=== PATIENT | female | born 1935 ===

== ENCOUNTER 2016-10-21 11:45 | Day surgery (SDC) | payer MEDICARE, MEDICAID ==
[2016-10-21 12:05] VITALS: BMI 27.4
[2016-10-21] MEDS ORDERED: Lidocaine 1% Inj (20ml) ONE (12:57)
[2016-10-21 13:04] LABS: PARTIAL THROMBOPLASTIN TIME 30.6 SECONDS (23.3-32.5)
[2016-10-21 13:06] VITALS: RESP 18
--- NOTE | 2016-10-21 13:44 | CP.SDSHP ---
Same Day Surgery H & P - History Proposed Procedure: US guided FNA of left thyroid nodule. Pre-Op Diagnosis: Left thyroid nodule - Allergies Allergies: Allergies Penicillins Allergy (Verified 10/28/15 01:39) RASH - Physical Exam Vital Signs: Vital Signs 10/21/16 10/21/16 10/21/16 12:39 12:41 13:10 Temperature 98.1 F 96.3 F L Pulse Rate 72 71 Pulse Rate [ 72 Radial] Respiratory 18 18 18 Rate Blood Pressure 138/67 141/75 O2 Sat by Pulse 96 99 Oximetry 10/21/16 13:41 Temperature Pulse Rate 76 Pulse Rate [ Radial] Respiratory 18 Rate Blood Pressure 142/74 O2 Sat by Pulse Oximetry Mental Status: Alert & Oriented x3 Neuro: WNL Heart: WNL Lungs: WNL - Impression Impression: Plan US guided FNA of left thyroid nodule. Pt. Evaluated Today:Candidate for Anesthesia & Procedure: No Short Stay Discharge - Short Stay Discharge Admitting Diagnosis/Reason for Visit: LT THYROID NODULE Referrals: Shantel Rehman MD [Primary Care Provider] - Progress Note/Discharge Note with Instructions: s/p left thyroid FNA.
--- NOTE | 2016-10-21 13:46 | PCM.SURG1 ---
Surgeon's Initial Post Op Note - Surgeon's Notes Surgeon: Aly Castro MD Bench Jeweler: NONE Type of Anesthesia: Local Pre-Operative Diagnosis: left thyroid nodule. Operative Findings: 3 cm complex calcified left thyroid nodule Post-Operative Diagnosis: left thyroid nodule. Operation Performed: US guided FNA of left thyroid nodule. Specimen/Specimens Removed: 25 g FNA x 4 Estimated Blood Loss: EBL {In ML}: 0 Post-Op Condition: Good Date of Surgery/Procedure: 10/21/16 Time of Surgery/Procedure: 13:45
[2016-10-21 13:57] VITALS: PULSE 74
[2016-10-21 14:29] VITALS: BP 147/74; TEMP 98; O2SAT 95
--- NOTE | 2016-10-21 14:58 | US ---
PROCEDURE: Date of Procedure: 10/21/2016 PROCEDURE: 1. Ultrasound guided FNA of left thyroid nodule, CPT 68799 2. Ultrasound guidance for FNA, 45222 Medications: 4 cc 1% Lidocaine HISTORY: Enlarged left thyroid nodule. TECHNIQUE: Following informed consent and procedure time-out, a limited ultrasound patient's neck confirmed the presence of a 3 cm complex left thyroid nodule which is predominantly solid and has calcifications. After the patient's neck was prepped and draped in the usual sterile fashion, the skin was anesthetized with 1% lidocaine. Ultrasound-guided fine needle aspiration was then performed of the dominant left thyroid nodule. A total of 4 passes were made into the nodule with 25 gauge needle under ultrasound guidance. The FNA specimen was sent for routine pathology. Post biopsy ultrasound showed no hematoma. IMPRESSION: Ultrasound-guided FNA of the dominant left thyroid nodule.
== END 2016-10-21 14:39 | disposition home or self-care (01) ==
LOC: H.OPSURG 11:45
PROVIDERS: ATTEND Surgery
DX: E04.1 Nontoxic single thyroid nodule (principal)

== ENCOUNTER 2016-12-18 10:18 | Inpatient (IN) | payer MEDICARE, MEDICAID ==
[2016-12-18 10:18] VITALS: BMI 27.4
--- NOTE | 2016-12-18 11:10 | ED PDOC ---
HPI: CCC, URI, Sore Throat Time Seen by Provider: 12/18/16 10:37 Chief Complaint (Nursing): Dizziness/Lightheaded Chief Complaint (Provider): Cough History Per: Patient History/Exam Limitations: no limitations Onset/Duration Of Symptoms: Days (x2 weeks) Current Symptoms Are (Timing): Still Present Associated Symptoms: Cough. denies: Fever, Sputum Severity: Mild Additional Complaint(s): Patient is an 81 year old female, who has a history of asthma, presents to the ED complaining of dry cough x2 weeks. Patient reports worsening asthma and that she is coughing all day and night. Cough is associated with wheezing and intermittent shortness of breath. Patient has been taking her prescribed medication by her PMD including steroids, inhalers, and antibiotics with no relief. Patient also complains of dizziness x4 days., particularly when walking. Denies chest pain, fever, or leg swelling. PMD: Shantel Rehman Past Medical History Reviewed: Historical Data, Nursing Documentation, Vital Signs Vital Signs: Last Vital Signs Temp 98 F 12/18/16 11:12 Pulse 71 12/18/16 13:06 Resp 19 12/18/16 13:06 BP 150/80 12/18/16 13:06 Pulse Ox 97 12/18/16 13:06 - Medical History PMH: Asthma, Diabetes, HTN, Hypercholesterolemia Denies: Chronic Kidney Disease - Surgical History Surgical History: Back Surgery - Family History Family History: States: No Known Family Hx - Home Medications Home Medications: Ambulatory Orders Medication Instructions Recorded Albuterol HFA [Ventolin HFA 90 90 mcg INH PRN PRN 08/07/16 mcg/actuation (8 g)] Budesonide/Formoterol Fumarate 10.2 gm PRN PRN 08/07/16 [Symbicort 160-4.5 Mcg Inhaler] MetFORMIN [glucoPHAGE] 1,000 mg PO BID 08/07/16 Montelukast [Singulair] 10 mg DAILY 08/07/16 Omeprazole Magnesium [Prilosec Otc] 40 mg PO DAILY 08/07/16 Trebenzor 25 - 40 mg PO BID 08/07/16 Aspirin [[place] Aspirin] 81 mg PO DAILY 10/21/16 Gabapentin [Neurontin] 300 mg PO DAILY 10/21/16 Insulin Degludec [Tresiba 25 unit SQ DAILY 10/21/16 Flextouch U-100] SITagliptin [Januvia] 50 mg PO DAILY 10/21/16 Fexofenadine HCl [Fexofenadine HCl] 180 mg PO DAILY 12/18/16 Fluticasone Propionate [Clarispray] 9.9 ml NS DAILY PRN 12/18/16 Fluticasone/Vilanterol [Breo 1 puff IN BID 12/18/16 Ellipta 200-25 Mcg INH] Promethazine [Phenergan Oral Syrup] 5 ml PO Q8 PRN 12/18/16 - Allergies Allergies/Adverse Reactions: Allergies Allergy/AdvReac Type Severity Reaction Status Date / Time Penicillins Allergy RASH Verified 10/28/15 01:39 Review of Systems ROS Statement: Except As Marked, All Systems Reviewed And Found Negative Constitutional: Negative for: Fever Cardiovascular: Negative for: Chest Pain, Edema Respiratory: Positive for: Cough, Shortness of Breath, Wheezing. Negative for: Sputum Neurological: Positive for: Dizziness Physical Exam - Reviewed Nursing Documentation Reviewed: Yes Vital Signs Reviewed: Yes - Physical Exam Appears: Positive for: Well, Non-toxic, No Acute Distress Head Exam: Positive for: ATRAUMATIC, NORMAL INSPECTION, NORMOCEPHALIC Skin: Positive for: Normal Color, Warm, DRY Eye Exam: Positive for: EOMI, Normal appearance, PERRL Neck: Positive for: Normal, Painless ROM Cardiovascular/Chest: Positive for: Regular Rate, Rhythm. Negative for: Gallop , Murmur Respiratory: Positive for: Wheezing (bilateral). Negative for: Accessory Muscle Use, Rhonchi, Respiratory Distress Gastrointestinal/Abdominal: Positive for: Normal Exam, Soft. Negative for: Tenderness Extremity: Positive for: Normal ROM. Negative for: Calf Tenderness, Swelling Neurologic/Psych: Positive for: Alert, Oriented - Laboratory Results Result Diagrams: 12/18/16 11:10 12/18/16 11:10 - ECG ECG: Positive for: Interpreted By Me, Viewed By Me ECG Rhythm: Positive for: Normal QRS, Normal ST Segment, Sinus Rhythm. Negative for: ST/T Changes Rate: 72 - Radiology X-Ray: Viewed By Me, Read By Radiologist X-Ray Interpretation: No Acute Disease - Progress Re-evaluation Time: 01:40 Condition: Re-examined, Improving,but remains with symptoms Nebulizer Treatments/Peak Flow - Duonebs Number of Bronchodilator Doses given?: 2 - Pre/Post Peak Flow Pre Treatment Peak Flow: 150 Post treatment Peak Flow: 200 - Steroid Treatment Steroid: IV - Clinical Response Clinical Response: Unchanged Medical Decision Making Medical Decision Making: Time: 10:40 Impression: asthma exacerbation v PNA v CHF Plan: EKG B Type Natriuretic Peptide BMP Magnesium Stat Troponin UDip CBC CXR Scribe Attestation Documented by Geovanna Thomason acting as a scribe for Kenny Gutierrez MD. Provider Attestation: All medical record entries made by the Scribe were at my direction and personally dictated by me. I have reviewed the chart and agree that the record accurately reflects my personal performance of the history, physical exam, medical decision making, and the department course for this patient. I have also personally directed, reviewed, and agree with the discharge instructions and disposition. Disposition - Clinical Impression Clinical Impression: Asthma exacerbation - Patient ED Disposition Is Patient to be Admitted: Yes Discussed With : Kelvin Min Doctor Will See Patient In The: Hospital Counseled Patient/Family Regarding: Studies Performed, Diagnosis - Disposition Disposition Time: 13:53 Condition: FAIR - Pt Status Changed To: Hospital Disposition Of: Inpatient - Admit Certification Admit to Inpatient:: After my assessment, the patient will require hospitalization for at least two midnights. This is because of the severity of symptoms shown, intensity of services needed, and/or the medical risk in this patient being treated as an outpatient. - POA Present On Arrival: Poor Glycemic Control
[2016-12-18] MEDS ORDERED: Albuterol-Ipratrop 3 mg / 0.5 (3 ml) UD INH STA ×2 (11:15→12:41)
[2016-12-18 11:20] LABS: BASO # 0.1 K/uL (0.0-0.2); BASO % 0.8 % (0.0-2.0); EOS # 0.2 K/uL (0.0-0.7); EOS % 1.4 % (0.0-4.0); HEMOGLOBIN 12.7 g/dL (12.0-16.0); LYMPH # 0.9 K/uL (1.0-4.3); LYMPH % 8.8 % (20.0-40.0); MEAN CELL VOLUME 87.4 fl (81.0-99.0); MEAN CORPUSCULAR HEMOGLOBIN 29.7 pg (27.0-31.0); MEAN PLATELET VOLUME 8.3 fl (7.2-11.7); MONO # 0.7 K/uL (0.0-0.8); MONO % 6.2 % (0.0-10.0); NEUT # 8.7 K/uL (1.8-7.0); NEUT % 82.8 % (50.0-75.0); PLATELET COUNT 195 K/uL (130-400); RBC 4.29 Mil/uL (3.80-5.20); RED CELL DISTRIBUTION WIDTH 12.9 % (11.5-14.5); WHITE BLOOD COUNT 10.6 K/uL (4.8-10.8)
--- NOTE | 2016-12-18 11:21 | RAD ---
HISTORY: dyspnea COMPARISON: Comparison chest dated 08/07/2016 correlation also made with CTA of the chest dated 09/05/2016. TECHNIQUE: Chest PA and lateral FINDINGS: LUNGS: Suspect minor bibasilar atelectasis. . . PLEURA: No significant pleural effusion identified. No pneumothorax apparent. CARDIOVASCULAR: Normal. OSSEOUS STRUCTURES: Minor multilevel degenerative spondylosis of the thoracic spine with slight straightening of the normal thoracic kyphosis VISUALIZED UPPER ABDOMEN: Normal. OTHER FINDINGS: None. IMPRESSION: Minor bibasilar atelectasis.
[2016-12-18 11:54] LABS: BLOOD UREA NITROGEN 27 mg/dl (7-17); CALCIUM 9.2 mg/dL (8.4-10.2); GFR AFRICAN-AMERICAN > 60; GFR NON-AFRICAN AMERICAN 53; MAGNESIUM 1.7 MG/DL (1.6-2.3)
[2016-12-18 12:05] LABS: B-TYPE NATRIURETIC PEPTIDE 147 pg/ml (0-900)
[2016-12-18] MEDS ORDERED: Albuterol-Ipratrop 3 mg / 0.5 (3 ml) UD ONE ×3 (12:07→16:38)
[2016-12-18 12:14] LABS: ANISOCYTOSIS SLIGHT; BASOPHIL 1 % (0-2); LYMPHOCYTE 14 % (20-50); MONOCYTE 2 % (0-10); NEUTROPHIL 83 % (42-75); PLATELET ESTIMATE NORMAL (NORMAL); TOTAL CELLS COUNTED 100
[2016-12-18] MEDS ORDERED: Magnesium Sulfate 2 gm/50 ml 2 GM/50 ML BAG ONE (12:57)
[2016-12-18] MEDS ORDERED: Magnesium Sulfate 2 gm/50 ml 2 GM/50 ML BAG IVPB ONE (13:02)
[2016-12-18] MEDS ORDERED: Albuterol HFA 90 mcg/actuation (8 g) INH PRN (15:06)
[2016-12-18] MEDS ORDERED: MethylPREDNISolone 40 mg Vial ONE (16:24)
[2016-12-18] MEDS ORDERED: Insulin Regular 100 units/ml ONE (16:24)
[2016-12-18] MEDS: Insulin Regular 100 units/ml SC SCH ×2 (16:31→21:36)
[2016-12-18] MEDS: methylPREDNISolone 80 MG in Sodium Chloride 0.9% 50 ML IVPB SCH ×2 (16:33→21:37)
[2016-12-18] MEDS ORDERED: Albuterol-Ipratrop 3 mg / 0.5 (3 ml) UD INH SCH (17:00)
[2016-12-18] MEDS ORDERED: Pneumococcal 23-Valent Vaccine IM ONE (17:47)
[2016-12-18] MEDS: Fluticasone-Salmeterol 250-50mcg Diskus INH SCH (17:53)
[2016-12-19] MEDS: Albuterol-Ipratrop 3 mg / 0.5 (3 ml) UD INH SCH ×4 (01:11→19:13)
[2016-12-19] MEDS: methylPREDNISolone 80 MG in Sodium Chloride 0.9% 50 ML IVPB SCH ×4 (04:03→22:15)
[2016-12-19] MEDS: Fluticasone-Salmeterol 250-50mcg Diskus INH SCH ×2 (04:04→16:20)
--- NOTE | 2016-12-19 06:47 | CARD ---
APPROVED REPORT EKG Measurement Heart [id number] <Conclusion> Normal sinus rhythm Normal ECG
[2016-12-19] MEDS: Insulin Regular 100 units/ml SC SCH ×4 (07:03→22:15)
[2016-12-19] MEDS: Pantoprazole 40 mg EC Tab PO SCH (08:40)
[2016-12-19] MEDS: Promethazine 6.25 MG/5 ML CUP PO PRN ×2 (08:40→16:20)
[2016-12-19] MEDS ORDERED: INSULIN DEGLUDEC 25 UNIT SQ SCH (09:00)
[2016-12-19 09:22] LABS: HEMOGLOBIN 13.1 g/dL (12.0-16.0); MEAN CELL VOLUME 86.8 fl (81.0-99.0); MEAN CORPUSCULAR HEMOGLOBIN 29.8 pg (27.0-31.0); MEAN CORPUSCULAR HGB CONC 34.4 g/dL (33.0-37.0); RBC 4.39 Mil/uL (3.80-5.20); RED CELL DISTRIBUTION WIDTH 12.7 % (11.5-14.5); WHITE BLOOD COUNT 10.8 K/uL (4.8-10.8)
[2016-12-19 09:34] LABS: ALB/GLOB RATIO 1.2 (1.0-2.1); ALBUMIN 4.2 g/dL (3.5-5.0); ALT/SGPT 43 U/L (9-52); AST/SGOT 30 U/L (14-36); BLOOD UREA NITROGEN 25 mg/dl (7-17); CALCIUM 9.5 mg/dL (8.4-10.2); GFR AFRICAN-AMERICAN > 60; GFR NON-AFRICAN AMERICAN > 60
[2016-12-19] MEDS ORDERED: [UNRECOGNIZED DRUG - OTHER] PO SCH (17:00)
[2016-12-20] MEDS: Albuterol-Ipratrop 3 mg / 0.5 (3 ml) UD INH SCH ×4 (01:53→19:14)
[2016-12-20] MEDS: methylPREDNISolone 80 MG in Sodium Chloride 0.9% 50 ML IVPB SCH (04:49)
[2016-12-20] MEDS: Fluticasone-Salmeterol 250-50mcg Diskus INH SCH ×2 (04:51→16:37)
[2016-12-20] MEDS: Promethazine 6.25 MG/5 ML CUP PO PRN ×3 (04:58→22:29)
[2016-12-20 05:35] LABS: HEMOGLOBIN 11.6 g/dL (12.0-16.0); MEAN CELL VOLUME 88.4 fl (81.0-99.0); MEAN CORPUSCULAR HEMOGLOBIN 29.2 pg (27.0-31.0); RBC 3.98 Mil/uL (3.80-5.20); RED CELL DISTRIBUTION WIDTH 12.9 % (11.5-14.5); WHITE BLOOD COUNT 17.8 K/uL (4.8-10.8)
[2016-12-20 06:09] LABS: ALB/GLOB RATIO 1.2 (1.0-2.1); ALBUMIN 3.5 g/dL (3.5-5.0); CALCIUM 9.3 mg/dL (8.4-10.2)
[2016-12-20] MEDS: Insulin Regular 100 units/ml SC SCH ×4 (06:56→22:28)
[2016-12-20] MEDS: Pantoprazole 40 mg EC Tab PO SCH (08:13)
[2016-12-20] MEDS ORDERED: methylPREDNISolone 80 MG in Sodium Chloride 0.9% 50 ML IVPB SCH (10:00)
[2016-12-20] MEDS ORDERED: methylPREDNISolone 100 MG in Sodium Chloride 0.9% 50 ML IV SCH (10:00)
[2016-12-20] MEDS: levoFLOXacin 500 mg in D5W 500 MG/100 ML BAG IVPB SCH (11:29)
[2016-12-20] MEDS: methylPREDNISolone 100 MG in Sodium Chloride 0.9% 50 ML IV SCH ×3 (11:29→22:27)
[2016-12-21] MEDS: Albuterol-Ipratrop 3 mg / 0.5 (3 ml) UD INH SCH ×5 (01:12→19:18)
[2016-12-21] MEDS: methylPREDNISolone 100 MG in Sodium Chloride 0.9% 50 ML IV SCH ×2 (04:16→09:01)
[2016-12-21] MEDS: Fluticasone-Salmeterol 250-50mcg Diskus INH SCH (04:17)
[2016-12-21] MEDS: Insulin Regular 100 units/ml SC SCH ×4 (06:36→22:14)
[2016-12-21 06:58] LABS: HEMOGLOBIN 11.9 g/dL (12.0-16.0); MEAN CELL VOLUME 88.1 fl (81.0-99.0); MEAN CORPUSCULAR HEMOGLOBIN 28.8 pg (27.0-31.0); MEAN CORPUSCULAR HGB CONC 32.7 g/dL (33.0-37.0); RBC 4.13 Mil/uL (3.80-5.20); RED CELL DISTRIBUTION WIDTH 13.1 % (11.5-14.5); WHITE BLOOD COUNT 16.6 K/uL (4.8-10.8)
[2016-12-21 07:09] LABS: ALB/GLOB RATIO 1.1 (1.0-2.1); ALBUMIN 3.5 g/dL (3.5-5.0); ALT/SGPT 36 U/L (9-52); AST/SGOT 28 U/L (14-36); BLOOD UREA NITROGEN 34 mg/dl (7-17); CALCIUM 9.5 mg/dL (8.4-10.2); GFR AFRICAN-AMERICAN > 60; GFR NON-AFRICAN AMERICAN 53
[2016-12-21] MEDS: Pantoprazole 40 mg EC Tab PO SCH (08:12)
[2016-12-21] MEDS: Promethazine 6.25 MG/5 ML CUP PO PRN ×2 (08:16→16:19)
[2016-12-21] MEDS: levoFLOXacin 500 mg in D5W 500 MG/100 ML BAG IVPB SCH (08:19)
[2016-12-21] MEDS: Sodium Chloride 0.45% 1,000 ML IV SCH (08:58)
[2016-12-21] MEDS ORDERED: Pneumococcal 23-Valent Vaccine IM ONE (09:25)
[2016-12-21] MEDS: Fluticasone-Salmeterol 500-50mcg Diskus IH SCH ×2 (10:46→22:08)
[2016-12-21] MEDS: Enoxaparin 40 mg Syringe SC SCH (10:48)
[2016-12-21] MEDS: methylPREDNISolone 60 MG in Sodium Chloride 0.9% 50 ML IVPB SCH ×2 (17:10→22:24)
[2016-12-22] VITALS: RESP 18
[2016-12-22] MEDS: Albuterol-Ipratrop 3 mg / 0.5 (3 ml) UD INH SCH ×5 (00:54→15:22)
[2016-12-22] MEDS: methylPREDNISolone 60 MG in Sodium Chloride 0.9% 50 ML IVPB SCH (04:12)
[2016-12-22 06:40] LABS: ALB/GLOB RATIO 1.2 (1.0-2.1); ALBUMIN 3.4 g/dL (3.5-5.0); ALT/SGPT 38 U/L (9-52); AST/SGOT 24 U/L (14-36); BLOOD UREA NITROGEN 34 mg/dl (7-17); CALCIUM 9.5 mg/dL (8.4-10.2); GFR AFRICAN-AMERICAN > 60; GFR NON-AFRICAN AMERICAN 53
[2016-12-22] MEDS: Insulin Regular 100 units/ml SC SCH ×2 (06:44→12:46)
[2016-12-22] MEDS: Sodium Chloride 0.45% 1,000 ML IV SCH (06:51)
[2016-12-22 06:55] LABS: BASO % 0.1 % (0.0-2.0); HEMOGLOBIN 12.4 g/dL (12.0-16.0); LYMPH # 0.3 K/uL (1.0-4.3); LYMPH % 2.4 % (20.0-40.0); MEAN CELL VOLUME 88.4 fl (81.0-99.0); MEAN CORPUSCULAR HEMOGLOBIN 28.9 pg (27.0-31.0); MEAN CORPUSCULAR HGB CONC 32.7 g/dL (33.0-37.0); MEAN PLATELET VOLUME 8.8 fl (7.2-11.7); MONO # 0.6 K/uL (0.0-0.8); MONO % 4.3 % (0.0-10.0); NEUT % 93.2 % (50.0-75.0); NRBC % 0.1 % (0.0-0.0); PLATELET COUNT 220 K/uL (130-400); RBC 4.29 Mil/uL (3.80-5.20); RED CELL DISTRIBUTION WIDTH 13.1 % (11.5-14.5)
[2016-12-22 09:29] LABS: LYMPHOCYTE 2 % (20-50); MONOCYTE 4 % (0-10); NEUTROPHIL 94 % (42-75); TOTAL CELLS COUNTED 100
[2016-12-22 09:31] LABS: BURR CELLS SLIGHT; OVALOCYTES SLIGHT; PLATELET ESTIMATE NORMAL (NORMAL); TEARDROP CELLS SLIGHT
[2016-12-22] MEDS: Promethazine 6.25 MG/5 ML CUP PO PRN (09:38)
[2016-12-22] MEDS: Fluticasone-Salmeterol 500-50mcg Diskus IH SCH (09:38)
[2016-12-22] MEDS: Enoxaparin 40 mg Syringe SC SCH (09:39)
[2016-12-22] MEDS: Pantoprazole 40 mg EC Tab PO SCH (09:40)
[2016-12-22] MEDS: levoFLOXacin 500 mg in D5W 500 MG/100 ML BAG IVPB SCH (09:40)
[2016-12-22] MEDS ORDERED: Sod Polystyrene Sulf 15 gm/60 ml Oral Susp PO ONE (09:51)
[2016-12-22] MEDS: methylPREDNISolone 40 MG in Sodium Chloride 0.9% 50 ML IVPB SCH ×2 (11:43→16:36)
[2016-12-22] MEDS ORDERED: Acetylcysteine 10% 4 ML IH SCH (14:00)
--- NOTE | 2016-12-22 14:15 | CP.PCM.PCO ---
Physician Communication Note - Physician Communication Note Physician Communication Note: p Assessment & Plan - Assessment and Plan (Free Text) Assessment: patient will require 1 week of levaquin 500 iv daily in TCU cont. Solumedrol taper 40 mg iv q 6
[2016-12-22 16:11] VITALS: BP 125/69; PULSE 86; TEMP 97.7; O2SAT 97
[2016-12-22] MEDS ORDERED: guaiFENesin-DM 600-30 mg ER Tab PO SCH (17:00)
--- NOTE | 2017-01-04 13:59 | PN ---
Dr. Kelvin Min dictating a progress note for Shantel Go [id number]; 12/20/2016 Patient seen in exam, and interviewed as noted Patient's chief complaint of shortness of breath and wheezing; denies any chest pain or any shortness of breath Physical exam: Patient is in no acute distress, vital signs are stable. 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 For now, patient has significant exacerbation of bronchial asthma not responding to current doses of steroids. Plan as ordered. Case and plan discussed with patient. MINDY
--- NOTE | 2017-01-04 14:03 | HP ---
Dr. Kelvin Min dictating admitting physical for patient, Shantel Go. Date of admission: 12/18/2016; Chief complaint: cough HPI: 81 year-old female, history of bronchial asthma, diabetes, hypertension, high cholesterol who was having cough for a few days and was seen by family care physician who treated her according, but patient condition did not improve and got worse. So patient was brought to ER where patient was also treated in the emergency room with intravenous antibiotics, patient condition did not improve so patient was admitted for further management. Review of system: ROS positives : (+)cough, (+)SOB, ROS negative for: headache, dizziness, syncope, loss of consciousness, chest pain, nausea, vomiting, diarrhea, constipation, any joint or extremity pain, the rest of review of systems is unremarkable. Past medical history: significant for hypertension, high cholesterol, diabetes, asthma Past surgical history: unremarkable except back surgery Social history: Patient is currently non-smoker, non-drinker, no substance abuse. Medication: Patient is on ventolin, symbicort, metformin, singulair, prilosec, aspirin, neurontin, gazyva, januvia, fluticasone, altiva, promethazine Patient is not allergic to any medications. Family history is noncontributory Physical Exam: 81 year-old female in non-acute distress vital signs : temperature 97.5F, pulse 71, respiration: 20, blood pressure: 160/ 80 HEENT: patient is wearing glasses, pupils are reacting to light, no JVD, no lymphadenopathy, no nystagmus, normal carotid, atraumatic skull Heart exam - S1 and S2, normal, regular, no significant murmur or gallop, no rub Lungs - good bilateral air exchange, patient has bilateral prolonged expiration , bilateral wheezing, no rales Abdomen - soft, nontender, no organomegaly, normal bowel sounds Extremities - no edema, no acute swelling, no tenderness, no 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 WBC:10.8; hemoglobin: 13.1; hematocrit: 38.1; platelet: 209; sodium: 130; potassium: 3.8; chloride: 92 ; bicarb: 26; BN: 60; BUN: 25; creatinine 0.8; accuchek: high 372,286, 246, 334 ,370. Rest of labs are unremarkable. Chest x-ray shows bilateral bases with alveolitis. EKG: show normal sinus rhythm without any acute ST changes. Admitting impressions: acute excitation of bronchial asthma, type II diabetes with hyperglycemia, hypertension, elevated cholesterol plan as ordered. Case and plan discussed with patient. Kelvin Min MD
== END 2016-12-22 16:45 | DRG 203 ==
LOC: H.ER 10:18 → H.ERHOLD 13:50 → H.MEDSURG1 17:15
PROVIDERS: ADMIT Internal Medicine; ATTEND Internal Medicine
PROC: 3E0234Z Introduction of Serum, Toxoid and Vaccine into Muscle, Percutaneous Approach (ICD-10-PCS; principal; 2016-12-21)
DX: J45.901 Unspecified asthma with (acute) exacerbation (principal); E11.65 Type 2 diabetes mellitus with hyperglycemia; Z23 Encounter for immunization; Z88.0 Allergy status to penicillin; Z91.013 Allergy to seafood; I10 Essential (primary) hypertension; E78.00 Pure hypercholesterolemia, unspecified

== ENCOUNTER 2016-12-22 15:53 | Inpatient (IN) | payer OTHER, MEDICAID ==
[2016-12-22 17:33] VITALS: BMI 28.0
[2016-12-22 18:38] VITALS: RESP 20
[2016-12-22] MEDS: Albuterol-Ipratrop 3 mg / 0.5 (3 ml) UD INH SCH (20:13)
[2016-12-22] MEDS: Acetylcysteine 10% 4 ML IH SCH (20:13)
[2016-12-22] MEDS: methylPREDNISolone 40 MG in Sodium Chloride 0.9% 50 ML IVP SCH (21:52)
[2016-12-22] MEDS ORDERED: MethylPREDNISolone 40 mg Vial IV SCH (22:00)
[2016-12-22] MEDS: Fluticasone-Salmeterol 500-50mcg Diskus IH SCH (22:14)
[2016-12-22] MEDS: Insulin Regular 100 units/ml SC SCH (22:14)
[2016-12-23] MEDS: Albuterol-Ipratrop 3 mg / 0.5 (3 ml) UD INH SCH ×7 (00:09→23:13)
[2016-12-23] MEDS: methylPREDNISolone 40 MG in Sodium Chloride 0.9% 50 ML IVP SCH ×4 (04:52→21:51)
[2016-12-23 06:28] LABS: HEMOGLOBIN 11.9 g/dL (12.0-16.0); MEAN CELL VOLUME 87.5 fl (81.0-99.0); MEAN CORPUSCULAR HEMOGLOBIN 29.4 pg (27.0-31.0); MEAN CORPUSCULAR HGB CONC 33.5 g/dL (33.0-37.0); RBC 4.06 Mil/uL (3.80-5.20); WHITE BLOOD COUNT 14.3 K/uL (4.8-10.8)
[2016-12-23] MEDS: Insulin Regular 100 units/ml SC SCH ×4 (06:34→21:50)
[2016-12-23 06:50] LABS: ALB/GLOB RATIO 1.1 (1.0-2.1); ALBUMIN 2.9 g/dL (3.5-5.0); ALT/SGPT 35 U/L (9-52); AST/SGOT 24 U/L (14-36); BLOOD UREA NITROGEN 32 mg/dl (7-17); CALCIUM 8.9 mg/dL (8.4-10.2); GFR AFRICAN-AMERICAN > 60; GFR NON-AFRICAN AMERICAN > 60
[2016-12-23] MEDS: Acetylcysteine 10% 4 ML IH SCH ×3 (07:18→19:22)
[2016-12-23] MEDS: Fluticasone-Salmeterol 500-50mcg Diskus IH SCH ×2 (08:08→21:49)
[2016-12-23] MEDS: Enoxaparin 40 mg Syringe SC SCH (08:09)
[2016-12-23] MEDS: Pantoprazole 40 mg EC Tab PO SCH (08:10)
[2016-12-23] MEDS: levoFLOXacin 500 mg in D5W 500 MG/100 ML BAG IVPB SCH (08:10)
[2016-12-23] MEDS: guaiFENesin-DM 600-30 mg ER Tab PO SCH ×2 (08:10→16:59)
[2016-12-23] MEDS ORDERED: [UNRECOGNIZED DRUG - OTHER] PO SCH (09:00)
[2016-12-23] MEDS ORDERED: INSULIN DEGLUDEC 25 UNIT SQ SCH (09:00)
[2016-12-23] MEDS: Promethazine 6.25 MG/5 ML CUP PO PRN (21:51)
[2016-12-24] MEDS: Albuterol-Ipratrop 3 mg / 0.5 (3 ml) UD INH SCH ×5 (04:26→19:47)
[2016-12-24] MEDS: methylPREDNISolone 40 MG in Sodium Chloride 0.9% 50 ML IVP SCH (04:33)
[2016-12-24] MEDS: Fluticasone-Salmeterol 500-50mcg Diskus IH SCH ×2 (08:07→21:47)
[2016-12-24] MEDS: Enoxaparin 40 mg Syringe SC SCH (08:08)
[2016-12-24] MEDS: Insulin Regular 100 units/ml SC SCH ×4 (08:08→21:46)
[2016-12-24] MEDS: guaiFENesin-DM 600-30 mg ER Tab PO SCH ×2 (08:08→17:02)
[2016-12-24] MEDS: Pantoprazole 40 mg EC Tab PO SCH (08:09)
[2016-12-24] MEDS: levoFLOXacin 500 mg in D5W 500 MG/100 ML BAG IVPB SCH (08:10)
[2016-12-24] MEDS: Promethazine 6.25 MG/5 ML CUP PO PRN ×2 (08:10→17:02)
[2016-12-24] MEDS: Acetylcysteine 10% 4 ML IH SCH ×3 (09:00→19:47)
[2016-12-24] MEDS: methylPREDNISolone 30 MG in Sodium Chloride 0.9% 50 ML IVP SCH ×3 (11:57→21:46)
[2016-12-25] MEDS: Albuterol-Ipratrop 3 mg / 0.5 (3 ml) UD INH SCH ×6 (00:55→20:00)
[2016-12-25] MEDS: methylPREDNISolone 30 MG in Sodium Chloride 0.9% 50 ML IVP SCH (03:35)
[2016-12-25] MEDS: Insulin Regular 100 units/ml SC SCH ×4 (06:54→21:36)
[2016-12-25] MEDS: Acetylcysteine 10% 4 ML IH SCH ×3 (08:37→12:10)
[2016-12-25] MEDS: Fluticasone-Salmeterol 500-50mcg Diskus IH SCH ×2 (08:59→21:36)
[2016-12-25] MEDS: Enoxaparin 40 mg Syringe SC SCH (08:59)
[2016-12-25] MEDS: Pantoprazole 40 mg EC Tab PO SCH (09:00)
[2016-12-25] MEDS: guaiFENesin-DM 600-30 mg ER Tab PO SCH ×2 (09:00→16:57)
[2016-12-25] MEDS: methylPREDNISolone 20 MG in Sodium Chloride 0.9% 50 ML IVP SCH ×3 (09:02→21:35)
[2016-12-25] MEDS: levoFLOXacin 500 mg in D5W 500 MG/100 ML BAG IVPB SCH (09:02)
[2016-12-26] MEDS: Albuterol-Ipratrop 3 mg / 0.5 (3 ml) UD INH SCH ×6 (00:49→19:24)
[2016-12-26] MEDS: methylPREDNISolone 20 MG in Sodium Chloride 0.9% 50 ML IVP SCH ×2 (04:37→09:56)
[2016-12-26] MEDS: Insulin Regular 100 units/ml SC SCH ×4 (06:50→21:16)
[2016-12-26] MEDS: Acetylcysteine 10% 4 ML IH SCH ×3 (07:44→19:24)
[2016-12-26] MEDS: Fluticasone-Salmeterol 500-50mcg Diskus IH SCH ×2 (08:55→21:16)
[2016-12-26] MEDS: levoFLOXacin 500 mg in D5W 500 MG/100 ML BAG IVPB SCH (08:58)
[2016-12-26] MEDS: Enoxaparin 40 mg Syringe SC SCH (08:59)
[2016-12-26] MEDS: Pantoprazole 40 mg EC Tab PO SCH (09:00)
[2016-12-26] MEDS: guaiFENesin-DM 600-30 mg ER Tab PO SCH ×2 (09:00→17:26)
[2016-12-27] MEDS: Albuterol-Ipratrop 3 mg / 0.5 (3 ml) UD INH SCH ×7 (00:03→23:18)
[2016-12-27] MEDS: Insulin Regular 100 units/ml SC SCH ×4 (06:59→21:46)
[2016-12-27] MEDS: Acetylcysteine 10% 4 ML IH SCH ×4 (07:30→19:07)
[2016-12-27] MEDS: guaiFENesin-DM 600-30 mg ER Tab PO SCH ×2 (08:49→16:34)
[2016-12-27] MEDS: Fluticasone-Salmeterol 500-50mcg Diskus IH SCH ×2 (08:49→21:42)
[2016-12-27] MEDS: Pantoprazole 40 mg EC Tab PO SCH (08:49)
[2016-12-27] MEDS: levoFLOXacin 500 mg in D5W 500 MG/100 ML BAG IVPB SCH (09:19)
[2016-12-27] MEDS: levoFLOXacin 500 MG TAB PO SCH (11:49)
[2016-12-28] MEDS: Albuterol-Ipratrop 3 mg / 0.5 (3 ml) UD INH SCH ×6 (04:59→23:54)
[2016-12-28] MEDS: Insulin Regular 100 units/ml SC SCH ×4 (06:54→22:25)
[2016-12-28] MEDS: Acetylcysteine 10% 4 ML IH SCH ×4 (08:06→20:00)
[2016-12-28] MEDS: Fluticasone-Salmeterol 500-50mcg Diskus IH SCH ×2 (08:18→22:24)
[2016-12-28] MEDS: guaiFENesin-DM 600-30 mg ER Tab PO SCH ×2 (08:19→17:29)
[2016-12-28] MEDS: levoFLOXacin 500 MG TAB PO SCH (08:19)
[2016-12-28] MEDS: Pantoprazole 40 mg EC Tab PO SCH (08:19)
[2016-12-29] MEDS: Albuterol-Ipratrop 3 mg / 0.5 (3 ml) UD INH SCH ×5 (04:50→19:39)
[2016-12-29] MEDS: Acetylcysteine 10% 4 ML IH SCH ×3 (07:29→19:39)
[2016-12-29] MEDS: Insulin Regular 100 units/ml SC SCH ×4 (07:54→21:42)
[2016-12-29] MEDS: levoFLOXacin 500 MG TAB PO SCH (08:23)
[2016-12-29] MEDS: Fluticasone-Salmeterol 500-50mcg Diskus IH SCH ×2 (08:23→21:35)
[2016-12-29] MEDS: Pantoprazole 40 mg EC Tab PO SCH (08:24)
[2016-12-29] MEDS: guaiFENesin-DM 600-30 mg ER Tab PO SCH ×2 (08:24→17:29)
[2016-12-29] MEDS: Promethazine 6.25 MG/5 ML CUP PO PRN (21:41)
[2016-12-30] MEDS: Acetylcysteine 10% 4 ML IH SCH (07:23)
[2016-12-30] MEDS: Insulin Regular 100 units/ml SC SCH (07:24)
[2016-12-30 08:29] VITALS: O2SAT 97
[2016-12-30 08:30] VITALS: BP 148/73; PULSE 86; TEMP 97.5
[2016-12-30] MEDS: guaiFENesin-DM 600-30 mg ER Tab PO SCH (08:41)
[2016-12-30] MEDS: Fluticasone-Salmeterol 500-50mcg Diskus IH SCH (08:41)
[2016-12-30] MEDS: levoFLOXacin 500 MG TAB PO SCH (08:42)
[2016-12-30] MEDS: Pantoprazole 40 mg EC Tab PO SCH (08:42)
--- NOTE | 2017-01-04 13:34 | PN ---
Patient is seen and examined. Currently in TCU unit for physical therapy. Patient is nice and adjusting well. She states that she feels much better and has no Sx of chest pain or SOB. Patient is in no acute distress. Her vital signs are stable. PE: Patient's vitals are stable and she is in NAD. Heart: Normal, RRR, no murmur Lungs: Clear, bilateral breath sounds Abdomen: Soft nontender Extremities: No edema, tenderness, or acute ischemia The exam is otherwise unchanged from her previous visit. Diagnostic date: All diagnostic data available was reviewed. condition is stable. Tentative discharge is for Monday. Plan as ordered. Kelvin Min MD
--- NOTE | 2017-01-04 13:41 | DS ---
Discharge Summary: Admit Date: 12/22/2016 Discharge Date: 12/30/2016 Patient currently in TCU was admitted to the medical floor initially for left bronchial asthma due to exacerbation, which was treated with hydro steriod which was gradually taper off. Patient has also been in physical therapy. Pt improved and became medically stable and will be discharge home today. Patient is to follow up with her PCP. Dischage Dx: Exacerbation Bronchial Asthma Kelvin Min MD
--- NOTE | 2017-01-04 13:56 | HP ---
CHIEF COMPLAINT: Shortness of breath HISTORY OF PRESENT ILLNESS:This is an 81 year old female who was admitted to medical floor for extra supervision of bronchial asthma which required 100mg of every six hours. This was gradually tapered down and became in which she was transitioned to a unit for completion of treatment. REVIEW OF SYSTEMS Positive for shortness of breath PAST MEDICAL HISTORY PAST SURGERY HISTORY Unremarkable SOCIAL HISTORY Patient is currently a non smoker, non drinker, and non substance abuse. MEDICATIONS Patient is on multiple medications which is a . ALLERGIES NKDA PAST FAMILY HISTORY Non Contributed Physical Exam 81 F in no active in no active distress. Temperature____. BP 130/60. REMAINDER OF DICTATION INAUDIBLE Kelvin Min MD [facility]
--- NOTE | 2017-01-04 17:34 | PN ---
This is Dr. Kelvin Min dictating a progress note for patient Shantel Go on 12/30/2016. Patient was seen and examined; interview is as noted. Patient feels much better , with no Sx of chest pain or SOB. PE: Patient's vitals are stable and she is in NAD. Heart: S1, S2 normal Lungs: Clear, bilateral air exchange Abdomen: Soft, nontender Extremities: No edema, no calf swelling, tenderness, no acute ischemia The exam is essentially unchanged from previous. Diagnostic Data: All available diagnostic data has been reviewed. Patient is stable and is supposed to be discharged home today. Discussed plan with patient. She will continue to follow up with her PCP. Kelvin Min MD
--- NOTE | 2017-01-04 18:52 | PN ---
Patient is seen in ____ Patient is ___ chest pain and shortness of breath ___ Patient is in no acute distress ___ Heart exam: ____ palpable ____ unchanged ___ diagnostic ____ Patient is relatively stable ____ Patient ___ Kelvin Min MD
--- NOTE | 2017-01-06 14:57 | PN ---
Dr. Kelvin Min Progress note Pt seen in examinig room HPI: ROS: No chest pain, no SOB. PE: Patient is in no acute distress. Heart: Lung: Good bilateral exchange. No whezzing Abdomen: soft, non- tender Extremities: no edema, no clubbing, no tenderness, no ischemia Diagnosis : Kelvin Min MD
--- NOTE | 2017-01-06 15:18 | PN ---
Dr. Min Progress note HPI: Pt remains in transitional care clinic. Patient is feels ok? No specific complaint, no chest pain, no SOB, Patient ____ improved Physical Exam: Patient is in no acute distress Vital signs are stable Lungs: no prolonged exudation, no____ Abdomen: soft, non tender, no organomegally? no edema, no tenderness, Diagnostic is available Plan: Pt is clinically stable ___much better control ___ Kelvin Min MDD
--- NOTE | 2017-01-10 09:22 | PN ---
12/25/16 Progress note: Patient has been examined and consulted which has been noted and appreciated. Patient is in transitional care and has been noted to be medically stable. At this time, pt denies any chest pain and claims to be feeling better. PE: Upon examination, the patient's vital signs are normal, she is awake, alert and in NAD. Her heart has normal sinus rhythm, no murmurs present at this time. Lungs are clear bilaterally, and abdomen is soft nontender. Extremities exhibit no edema, no clubbing, no tenderness, no acute ischemia. The exam is essentially unchanged. Diagnostics Data: All available diagnostic data has been reviewed and noted to be normal. The patient is recovering slowly in transitional care, and is noted to be medically stable at this time. Kelvin Min MD
--- NOTE | 2017-01-10 13:57 | PN ---
DR MELVIN SOTO Patient feels better, breathing improved, no chest pain, no shortness of breath , no wheezing. Patient does not use oxygen and does not feel shortness of breath. Physical exam; patient is in no active distress, vital signs are stable. Heart exam is regular . Lungs bilateral exchange Prolonged expirations is still , but improving. No rhonchi, no wheezing. No edema, no tenderness CNS exam is essentially unchanged. Diagnostic data available. Diagnostic data reviewed. Outpatient needs slowly improving. Kelvin Min MD [facility]
--- NOTE | 2017-01-10 14:01 | CP.PCM.PN ---
Subjective - Date & Time of Evaluation Date of Evaluation: 12/30/16 - Subjective Subjective: Patient was seen and examined; interview is as noted. Patient feels much better , with no Sx of chest pain or SOB. Objective - Vital Signs/Intake and Output Vital Signs (last 24 hours): Temp Pulse Resp BP Pulse Ox 97.5 F L 86 20 148/73 97 12/30/16 08:29 12/30/16 08:29 12/30/16 08:29 12/30/16 08:29 12/30/16 08:29 - Labs Labs: 12/23/16 06:15 12/23/16 06:15 - Additional Findings Additional findings: Patient's vitals are stable and she is in NAD. Heart: S1, S2 normal Lungs: Clear, bilateral air exchange Abdomen: Soft, nontender Extremities: No edema, no calf swelling, tenderness, no acute ischemia The exam is essentially unchanged from previous. Assessment and Plan - Assessment and Plan (Free Text) Assessment: Patient was personally seen and examined by me in rounds with residents. Available labs and diagnostic data reviewed. Case, Patient's condition and management plan discussed with residents in rounds. Agree with resident's documentation. Plan: As ordered. Kelvin Min MD Plan: All available diagnostic data has been reviewed. Patient is stable and is supposed to be discharged home today. Discussed plan with patient. She will continue to follow up with her PCP.
--- NOTE | 2017-01-10 14:17 | PN ---
CHIEF COMPLAINT: Shortness of breath HISTORY OF PRESENT ILLNESS:This is an 81 year old female who was admitted to ( *) for extra supervision of bronchial asthma which required. She was tapered down and became tingling in which she was transitioned to a unit for completion of treatment. REVIEW OF SYSTEMS Positive for shortness of breath PAST MEDICAL HISTORY PAST SURGERY HISTORY Unremarkable SOCIAL HISTORY Patient is currently a non smoker, non drinker, and non substance abuse. MEDICATIONS Patient is on multiple medications which is a . ALLERGIES NKDA PAST FAMILY HISTORY Non Contributed Physical Kelvin Min MD MTDD
== END 2016-12-30 11:10 | disposition home health service (06) | DRG 203 ==
LOC: H.TCU 17:33
PROVIDERS: ADMIT Internal Medicine; ATTEND Internal Medicine
PROC: F07Z9FZ Gait Training/Functional Ambulation Treatment using Assistive, Adaptive, Supportive or Protective Equipment (ICD-10-PCS; principal; 2016-12-22)
PROC: F08Z4FZ Home Management Treatment using Assistive, Adaptive, Supportive or Protective Equipment (ICD-10-PCS; 2016-12-22)
DX: J45.901 Unspecified asthma with (acute) exacerbation (principal); E11.9 Type 2 diabetes mellitus without complications; Z88.0 Allergy status to penicillin; Z91.013 Allergy to seafood

== ENCOUNTER 2017-11-16 08:24 | Emergency (ER) | payer MEDICARE, MEDICAID ==
[2017-11-16 08:25] VITALS: BMI 27.4
--- NOTE | 2017-11-16 09:41 | ED PDOC ---
HPI: General Adult Time Seen by Provider: 11/16/17 09:24 Chief Complaint (Nursing): Headache Chief Complaint (Provider): Diabetic Episode History Per: Patient History/Exam Limitations: no limitations Onset/Duration Of Symptoms: Hrs (x 5) Current Symptoms Are (Timing): Better Additional Complaint(s): 82 year old female with history of DM presents to the ED complaining of dizziness, diaphoresis, and mild headache onset 4 am. Patient states she drank orange juice and felt better. On arrival to the ED, accucheck was 80 and she stated symptoms were better. She denies chest pains, palpitations, LOC, any other injuries, or medical complaints. PMD: Dr. Shantel Rehman Past Medical History Vital Signs: Last Vital Signs Temp 97.9 F 11/16/17 08:29 Pulse 73 11/16/17 08:29 Resp 19 11/16/17 08:29 BP 173/80 H 11/16/17 08:29 Pulse Ox 98 11/16/17 12:38 - Medical History PMH: Arthritis, Asthma, Bronchitis, Diabetes, HTN, Hypercholesterolemia, Pneumonia Denies: Chronic Kidney Disease - Surgical History Surgical History: Back Surgery - Family History Family History: States: Unknown Family Hx - Social History Current smoker - smoking cessation education provided: No Ex-Smoker (has not smoked in the last 12 months): Yes Alcohol: None Drugs: Denies - Immunization History Hx Tetanus Toxoid Vaccination: No Hx Pneumococcal Vaccination: No - Home Medications Home Medications: Ambulatory Orders Medication Instructions Recorded MetFORMIN [glucoPHAGE] 1,000 mg PO BID 08/07/16 Montelukast [Singulair] 10 mg DAILY 08/07/16 Trebenzor 25 - 40 mg PO BID 08/07/16 Aspirin [[place] Aspirin] 81 mg PO DAILY 10/21/16 Gabapentin [Neurontin] 300 mg PO DAILY 10/21/16 Insulin Degludec [Tresiba 25 unit SQ DAILY 10/21/16 Flextouch U-100] ALPRAZolam [Xanax] 0.25 mg PO DAILY PRN 12/18/16 Albuterol/Ipratropium [Duoneb 3 3 ml INH RQ4 12/22/16 mg/0.5 mg (3 ml) UD] Fluticasone/Salmeterol 500/50 1 puff IH Q12 puff 12/22/16 [Advair Diskus 500/50] Loratadine [Claritin] 10 mg PO DAILY #0 tab 12/22/16 Pantoprazole [Protonix EC Tab] 40 mg PO DAILY ect 12/22/16 - Allergies Allergies/Adverse Reactions: Allergies Allergy/AdvReac Type Severity Reaction Status Date / Time FISH Allergy ANGIOEDEMA Verified 11/16/17 08:30 iodine Allergy ANAPHYLAXIS Verified 11/16/17 08:30 Penicillins Allergy RASH Verified 11/16/17 08:30 shellfish derived Allergy ANAPHYLAXIS Verified 11/16/17 08:30 Review of Systems ROS Statement: Except As Marked, All Systems Reviewed And Found Negative Constitutional: Positive for: Sweats, Other (no LOC) Cardiovascular: Negative for: Chest Pain, Palpitations Neurological: Positive for: Headache (mild), Dizziness Physical Exam - Reviewed Nursing Documentation Reviewed: Yes Vital Signs Reviewed: Yes - Physical Exam Appears: Positive for: Non-toxic, No Acute Distress Head Exam: Positive for: ATRAUMATIC, NORMOCEPHALIC Skin: Positive for: Normal Color, Warm, Dry Eye Exam: Positive for: Normal appearance, EOMI, PERRL Neck: Positive for: Painless ROM, Supple Cardiovascular/Chest: Positive for: Regular Rate, Rhythm. Negative for: Murmur Respiratory: Positive for: Normal Breath Sounds (bilateral). Negative for: Respiratory Distress Gastrointestinal/Abdominal: Positive for: Normal Exam, Soft. Negative for: Tenderness Neurologic/Psych: Positive for: Alert, Oriented (x3). Negative for: Motor/ Sensory Deficits - Laboratory Results Result Diagrams: 11/16/17 10:00 11/16/17 10:00 - ECG O2 Sat by Pulse Oximetry: 98 (RA) Pulse Ox Interpretation: Normal Medical Decision Making Medical Decision Making: Time: 9:33 Initial Plan: --EKG --CMP --CBC with differentials --Tylenol 325 mg tab 650 mg PO ---- Scribe Attestation: Documented by Katiuska Beyer, acting as a scribe for Jam Mae MD Sxs probably related to hypoglycemic episode. Asymptomatic in ED. Advised obs but pt states she feels well and wishes to go home and f/u with PMD Provider Scribe Attestation: All medical record entries made by the Scribe were at my direction and personally dictated by me. I have reviewed the chart and agree that the record accurately reflects my personal performance of the history, physical exam, medical decision making, and the department course for this patient. I have also personally directed, reviewed, and agree with the discharge instructions and disposition. Disposition - Clinical Impression Clinical Impression: Hypoglycemia - Patient ED Disposition Is Patient to be Admitted: No Counseled Patient/Family Regarding: Studies Performed, Diagnosis, Need For Followup, Rx Given - Disposition Referrals: [facility] [Outside] Disposition: Routine/Home Disposition Time: 12:38 Condition: FAIR Instructions: Low Blood Sugar, Adult (DC) Forms: [facility] (Albanian) Print Language: ROMANSH
[2017-11-16 10:09] LABS: BASO # 0.1 K/uL (0.0-0.2); BASO % 0.9 % (0.0-2.0); EOS # 0.1 K/uL (0.0-0.7); EOS % 1.8 % (0.0-4.0); HEMOGLOBIN 13.1 g/dL (12.0-16.0); LYMPH # 1.3 K/uL (1.0-4.3); LYMPH % 17.1 % (20.0-40.0); MEAN CELL VOLUME 87.6 fl (81.0-99.0); MEAN CORPUSCULAR HEMOGLOBIN 30.1 pg (27.0-31.0); MEAN CORPUSCULAR HGB CONC 34.4 g/dL (33.0-37.0); MEAN PLATELET VOLUME 7.3 fl (7.2-11.7); MONO # 0.8 K/uL (0.0-0.8); NEUT # 5.3 K/uL (1.8-7.0); NEUT % 69.2 % (50.0-75.0); NRBC % 0.1 % (0.0-0.0); RBC 4.36 Mil/uL (3.80-5.20); RED CELL DISTRIBUTION WIDTH 13.6 % (11.5-14.5); WHITE BLOOD COUNT 7.7 K/uL (4.8-10.8)
[2017-11-16 10:18] LABS: ALB/GLOB RATIO 1.1 (1.0-2.1); ALBUMIN 3.9 g/dL (3.5-5.0); ALT/SGPT 38 U/L (9-52); AST/SGOT 41 U/L (14-36); BLOOD UREA NITROGEN 17 mg/dl (7-17); CALCIUM 9.3 mg/dL (8.4-10.2); GFR AFRICAN-AMERICAN > 60; GFR NON-AFRICAN AMERICAN 60
--- NOTE | 2017-11-16 11:50 | CARD ---
APPROVED REPORT EKG Measurement Heart [id number] <Conclusion> Sinus rhythm with one premature ventricular complexes Otherwise normal ECG
[2017-11-16 13:22] VITALS: BP 150/70; PULSE 96; RESP 17; TEMP 97.7; O2SAT 100
== END 2017-11-16 13:15 | disposition home or self-care (01) ==
LOC: H.ER 08:24
DX: E11.65 Type 2 diabetes mellitus with hyperglycemia (principal); E78.00 Pure hypercholesterolemia, unspecified; I10 Essential (primary) hypertension; I49.3 Ventricular premature depolarization; J45.909 Unspecified asthma, uncomplicated; Z79.82 Long term (current) use of aspirin; Z79.84 Long term (current) use of oral hypoglycemic drugs; Z88.0 Allergy status to penicillin